=== PATIENT | male | born 1950 | race Caucasian/White ===

== ENCOUNTER 2020-04-11 07:50 | Day surgery (SDC) | payer MEDICARE, BC ==
[2020-04-09 09:45] LABS: BASOPHILS % (AUTO) 0.6 % (0-1); EOSINOPHILS # (AUTO) 0.2 X10'3 (0-0.9); EOSINOPHILS % (AUTO) 2.6 % (0-6); LYMPHOCYTES # (AUTO) 2.2 X10'3 (1.1-4.8); LYMPHOCYTES % (AUTO) 35.4 % (21-51); MEAN CORPUSCULAR HEMOGLOBIN 32.8 PG (27.0-31.0); MEAN CORPUSCULAR HGB CONC 34.9 g/dL (33.0-36.5); MEAN CORPUSCULAR VOLUME 93.8 FL (78-98); MEAN PLATELET VOLUME 9.2 FL (7.4-10.4); MONOCYTES # (AUTO) 0.9 X10'3 (0-0.9); MONOCYTES % (AUTO) 14.5 % (2-12); NEUTROPHILS # (AUTO) 2.9 X10'3 (1.8-7.7); NEUTROPHILS % (AUTO) 46.9 % (42-75); PRE OP HEMATOCRIT 45.8 % (42.0-52.0); PRE OP PLATELET COUNT 140 X10'3 (140-440); RED BLOOD COUNT 4.88 X10'6 (4.70-6.10); RED CELL DISTRIBUTION WIDTH 12.6 % (11.5-14.5)
--- NOTE | 2020-04-09 09:52 | NUR ---
PT TESTED NEGATIVE FOR COVID SCREENING QUESTIONS. PT HAD AN POSSIBLE EXPOSURE IN FEBRUARY BUT WAS COVID TESTED ON 03/08/2020 AND RESULTED NEGATIVE.
[2020-04-09 10:11] LABS: ALBUMIN/GLOBULIN RATIO 1.1 (1.1-1.5); ALKALINE PHOSPHATASE 74 IU/L (46-116); BLOOD UREA NITROGEN 15 MG/DL (7-18); CALCIUM 9.1 MG/DL (8.5-10.1); CHLORIDE 103 MMOL/L (99-107); CREATININE 1.07 MG/DL (0.60-1.10); PRE OP ALT 62 U/L (30-65); PRE OP ANION GAP 9 (8-16); PRE OP AST 32 U/L (10-37); PRE OP BILIRUB, TOTAL 0.8 MG/DL (0.0-1.0); PRE OP GLUCOSE 113 MG/DL (70-104); PRE OP POTASSIUM 4.2 MMOL/L (3.4-5.1); PRE OP SODIUM 138 MMOL/L (135-145); TOTAL CARBON DIOXIDE 26.4 MMOL/L (24-32); TOTAL PROTEIN 7.8 G/DL (6.4-8.2); eGFR 69 ML/MIN
[2020-04-11] VITALS (7 sets, daily range): BP systolic 139–153; BP diastolic 85–90
[~2020-04-11] VITALS: Ht 188 cm; Wt 133.8 kg
[~2020-04-11 07:50] MED LIST: ASPI-1264 PO; BENA20TA82 PO; DILT180C90 PO; FURO20TA4 PO; GABA-530 PO; HYDR25TA4 PO; INUL2TAB5 PO; POTA10TA36 PO; [UNRECOGNIZED DRUG - CODE] PO; ceFAZolin inj. 3,000 MG in normal saline 100ml IV soln 100 ML IV ONE; famotidine 20mg tablet PO ONE; ringers solution, lacted 1,000 ML IV SCH
[2020-04-11] MEDS ORDERED: sevoflurane 250ml liquid IH ONE (10:58)
[2020-04-11] MEDS ORDERED: midazolam 2 mg/2 ml injection ONE (10:59)
[2020-04-11] MEDS ORDERED: fentaNYL/PF 50MCG/1 ML 2ML syringe ONE (10:59)
[2020-04-11] MEDS ORDERED: meperidine/PF 25mg/ml syringe IV PRN ×3 (11:15)
[2020-04-11] MEDS ORDERED: proCHLORperazine 10 MG/2 ml inj IV PRN (11:15)
[2020-04-11] MEDS ORDERED: ringers solution, lacted 1,000 ML IV SCH (11:15)
[2020-04-11] MEDS ORDERED: morphine 2 MG/ML inj. syringe IV PRN (11:15)
[2020-04-11] MEDS ORDERED: ondansetron/PF 4mg/2ml inj IV PRN (11:15)
[2020-04-11] MEDS ORDERED: morphine 4 MG/ML inj SYRINge IV PRN (11:15)
[2020-04-11] MEDS ORDERED: BUPIVAcaine/PF 2.5 mg/ml (0.25%) 30ml vial ONE (11:17)
[2020-04-11] MEDS ORDERED: bacitracin 15gm ointment TP ONE (11:24)
[2020-04-11] MEDS ORDERED: propofol inj 20 ML IV ONE (11:26)
--- NOTE | 2020-04-11 11:48 | NUR ---
Received from OR via [facility], accompanied by Anesthesiologist Nanci and report given by Anesthesiolgist. VS stable mask to 10L, sats 98%, 20G left forearm IVF LR at 100cc/hr. Right foot and ankle wrapped with soft dressing and vincent wrap. Reinforced with more gauze at toes where mild oozing is present. Pt responding to all questions appropriately.
--- NOTE | 2020-04-11 11:49 | NUR ---
Pt discharged to vehicle without incident. IV dc'd. Sent home with ice pack, elevator pillow, boot and own belongings. also received extensive education and materials pertaining to ue and management and DC of ON-Q. Reviewed DC isntructions multiple times and pt verbalized understanding. Site remains CDI and pain remains 0. Addendum: 04/11/20 at 1329 by Idania Perez RN INCORRECT PATIENT OPLEASE DISREGARD NOTE.
--- NOTE | 2020-04-11 12:48 | NUR ---
Pt discharged to vehicle by wheelchair without incident. Pt has boot on over top of dressing, and knows to do partial weight bearing only. to receive. Pt verbalized understanding of all DC instructions. IV dc'd. Pt has pain meds at home already from doctors office.
== END 2020-04-11 12:48 | disposition home or self-care (01) ==
LOC: PAS 07:50
PROVIDERS: ATTEND Podiatrist Foot & Ankle Surgery
DX: M86.8X7 Other osteomyelitis, ankle and foot (principal); Z20.828 Contact with and (suspected) exposure to other viral communicable diseases; I10 Essential (primary) hypertension; M19.071 Primary osteoarthritis, right ankle and foot; E66.9 Obesity, unspecified; Z68.38 Body mass index [BMI] 38.0-38.9, adult; Z98.890 Other specified postprocedural states; Z86.73 Personal history of transient ischemic attack (TIA), and cerebral infarction without residual deficits; Z72.89 Other problems related to lifestyle; Z79.899 Other long term (current) drug therapy
CPT/HCPCS: 28820; 36415; 80053; 82948; 85025; 87070; 87075; 87635; 93005; A6222; C9803; J0690; J2250; J2704; J3010; J3490; A4215; A4618; A6449; J7120